=== PATIENT | male | born 1980 | race Caucasian/White ===

== ENCOUNTER 2022-01-25 07:32 | Day surgery (SDC) | payer OTHER ==
[~2022-01-25] VITALS: Ht 182.9 cm; Wt 93.4 kg
--- NOTE | 2022-01-25 07:30 | NUR ---
PT AMBULATED TO ROOM WITH GIRLFRIEND, PT AND POINT OF CONTACTR HAVE BEEN ORIENTED TO POC, NO QUESTIONS AT THIS TIME. PT ORIENTED TO ROOM, CALL LIGHT PT IS A&O, ABLE TO MAKE NEEDS KNOWN. PT HAS BEEN PLACED ON FALL PRECAUTIONS. PT HAS NO C/O PAIN, SOB, PT IN NAD. PT VSS. WILL CONTINUE TO MONITOR.
[2022-01-25 08:05] VITALS: BP 155/105
[2022-01-25 08:08] LABS: ALBUMIN 5.3 g/dL (3.2-5.0); ALKALINE PHOSPHATASE 83 u/l (38-126); ANION GAP 18 (6-22 (CALC)); BILIRUBIN, TOTAL 0.7 mg/dL (0.0-1.4); BUN 14 mg/dL (9-20); BUN/CREATININE RATIO 13 (12-20 (CALC)); CARBON DIOXIDE 30 mmol/l (22-30); CHLORIDE 99 mmol/l (95-108); CREATININE 1.1 mg/dL (0.7-1.3); GFR FOR AFR.AMER. > 60 ML/MIN (>=60 (CALC)); GFR OTHER RACES > 60 ML/MIN (>=60 (CALC)); POTASSIUM 3.8 mmol/l (3.5-5.1); SGOT/AST 32 u/l (17-59); SODIUM 143 mmol/l (137-146); TOTAL PROTEIN 8.3 g/dL (6.3-8.2)
[2022-01-25 08:10] LABS: HEMATOCRIT 50.2 % (39.0-50.0); HEMOGLOBIN 16.7 g/dl (14.0-18.0); IMMATURE GRANULOCYTES 0.3 % (0.0-5.0); MEAN CELL VOLUME 91.4 fL CALC (80.0-100.0); MEAN CORPUSCULAR HGB 30.4 pG CALC (26.0-32.0); MEAN CORPUSCULAR HGB CONC 33.3 g/dL CAL (32.0-36.0); NEUT# 4.28 thou/uL (1.82-7.42); RED BLOOD COUNT 5.49 mill/uL (4.70-6.10); RED CELL DISTRI WIDTH 12.9 % (11.5-15.5)
[2022-01-25] MEDS ORDERED: METOPROL TAR25 MG PO (08:45)
[2022-01-25 09:35] VITALS: BP 101/63
--- NOTE | 2022-01-25 09:35 | NUR ---
PT IS SLEEPING, EASILY AROUSABLE. PT HAS NO CHANGE TO ASSESSMENT.
--- NOTE | 2022-01-25 12:10 | NUR ---
PT REASSESSED, PT RESTLESS, PT HAS BEEN MEDICATED PER DR ORDER. WILL CONTINUE TO MONITOR.
--- NOTE | 2022-01-25 12:40 | NUR ---
PT SLEEPING, CALL LIGHT NEAR, BED ALARM ACTIVE.
--- NOTE | 2022-01-25 13:50 | NUR ---
Induction Note Patient to [facility] procedure room. Time out performed at 1350. Patient placed on monitors, Joceline hugger, bilateral wrist restraints applied for ET tube protection. Versed 5mg given IV push at 1351 Tourniquet applied to LEFT arm Lidocaine 100mg given [id number] IV push followed by Rocoronium 10mg at 1353 IV push and held for 90 seconds. Propofol bolus of 120mg given at 1355 IV push. Succinylcholine 80mg given IV push at 1356. Smooth intubation with 7.5 ETT. Positive CO2. Positive Auscultation for air exchange. Patient placed on ventilator for spontaneous ventilation. Placed on Propofol IV drip at 1357. OG inserted. Positive air on auscultation. Positive gastric content. Stomach washed at this time.
--- NOTE | 2022-01-25 14:05 | NUR ---
OG close note Stomach washed at this time. Naltrexone 50 mg with Clonidine 0.3 mg via OG tube. OG will be clamped for 45 minutes.
--- NOTE | 2022-01-25 14:50 | NUR ---
OG open note OG open at this time. Gastric content draining into drainage bag. OG to drain for 45 minutes. Propofol will be titrated down based on patient.
--- NOTE | 2022-01-25 15:40 | NUR ---
OG close note Stomach washed at this time. Naltrexone 50 mg with Clonidine 0.3 mg via OG tube. OG will be clamped for 45 minutes.
[2022-01-25] MEDS ORDERED: NALTREXONE50 MG PO (16:12)
[2022-01-25] MEDS ORDERED: CLONIDINE0.1 MG PO (16:13)
[2022-01-25] MEDS ORDERED: KLONOPIN2 MG PO (16:14)
--- NOTE | 2022-01-25 17:15 | NUR ---
OG close note Stomach washed at this time. Naltrexone 50 mg via OG tube. OG will be clamped for 45 minutes.
[2022-01-25 20:42] VITALS: BP 116/73
--- NOTE | 2022-01-25 21:10 | NUR ---
PATIENT RESTING IN BED WITH EYES CLOSED. LAYING TOWARDS RIGHT SIDE. NO SIGNS OF DISTRESS NOTED. BED IN LOW POSITION. BED ALARM ACTIVE.
[2022-01-25 22:40] VITALS: BP 122/66
--- NOTE | 2022-01-26 00:02 | NUR ---
PATIENT AMBULATED TO ROOM BATHROOM WITH SUPERVISION. VOIDED. ALERT AND ABLE TO MAKE NEEDS KNOWN. DRINKING WATER WITHOUT DIFFICULTY. BED REMAINS IN LOW POSITION WITH BED ALARM ACTIVE. CALL LIGHT IN REACH.
[2022-01-26 03:42] VITALS: BP 88/46
--- NOTE | 2022-01-26 03:57 | NUR ---
IVF BOLUS HUNG DUE TOO PATIENT LOW BP, PER ORDERS IN EMAR. PATIENT ASYMPTOMATIC. ALERT AND ABLE TO MAKE NEEDS KNOWN. BED REMAINS IN LOW POSITION. CALL LIGHT IN REACH. BED ALARM REMAINS ACTIVE.
[2022-01-26 05:15] LABS: HEMOGLOBIN 15.7 g/dl (14.0-18.0); IMMATURE GRANULOCYTES 0.4 % (0.0-5.0); MEAN CELL VOLUME 90.2 fL CALC (80.0-100.0); MEAN CORPUSCULAR HGB 30.8 pG CALC (26.0-32.0); MEAN CORPUSCULAR HGB CONC 34.1 g/dL CAL (32.0-36.0); NEUT# 11.78 thou/uL (1.82-7.42); RED BLOOD COUNT 5.1 mill/uL (4.70-6.10); RED CELL DISTRI WIDTH 12.8 % (11.5-15.5)
[2022-01-26 05:28] LABS: ALKALINE PHOSPHATASE 76 u/l (38-126); BILIRUBIN, TOTAL 0.6 mg/dL (0.0-1.4); BUN 10 mg/dL (9-20); BUN/CREATININE RATIO 10 (12-20 (CALC)); CHLORIDE 103 mmol/l (95-108); CREATININE 0.9 mg/dL (0.7-1.3); GFR FOR AFR.AMER. > 60 ML/MIN (>=60 (CALC)); GFR OTHER RACES > 60 ML/MIN (>=60 (CALC)); MAGNESIUM 2.3 mg/dL (1.6-2.3); POTASSIUM 4.4 mmol/l (3.5-5.1); SGOT/AST 26 u/l (17-59); SODIUM 139 mmol/l (137-146)
[2022-01-26 05:31] VITALS: BP 105/59
[2022-01-26 05:45] LABS: ALBUMIN 4.2 g/dL (3.2-5.0); ANION GAP 17 (6-22 (CALC)); CARBON DIOXIDE 23 mmol/l (22-30); TOTAL PROTEIN 6.5 g/dL (6.3-8.2)
--- NOTE | 2022-01-26 07:00 | NUR ---
REPORT RECEIVED FROM RAT FARMER RN BREATHING IS EVEN AND UNLABORED. NO DISTRESS NOTED. FALL/SAFTEY PRECAUTION IN PLACE, CALL LIGHT WITHIN REACH
[2022-01-26 09:21] VITALS: BP 102/59
[2022-01-26 09:23] VITALS: BP 102/59
[2022-01-26 09:28] VITALS: BP 102/59
--- NOTE | 2022-01-26 10:24 | NUR ---
[facility] STAFF AT BEDSIDE
--- NOTE | 2022-01-26 13:42 | NUR ---
PT RESTING IN BED WITH EYES CLOSED. BREATHING EVEN AND UNLABORED. STATES NO NEEDS AT THIS TIME. FALL/SAFTEY PRECAUTION IN PLACE. CALL LIGHT WITHIN REACH.
--- NOTE | 2022-01-26 14:29 | NUR ---
Discharge instructions given. Patient verbalizes understanding of same. Discharged in stable condition via Wheelchair to Home with staff. All belongings sent with pt.
== END 2022-01-26 14:30 | disposition home or self-care (01) | DRG 897 ==
LOC: ANR 07:32 → ANR-I 07:35 → ANR 10:00 → MS2 20:52 → ANR 01-26 14:30
PROVIDERS: ATTEND Anesthesiology
DX: F11.20 Opioid dependence, uncomplicated (principal)
CPT/HCPCS: J2354